=== PATIENT | female | born 1985 | race Caucasian/White ===

== ENCOUNTER 2022-05-27 17:58 | Emergency (ER) | payer OTHER, SELFPAY ==
[2022-05-27 18:30] VITALS: BP 137/92; PULSE 81; RESP 20; TEMP 36.8; O2SAT 100
--- NOTE | 2022-05-27 18:56 | ED.GENADULT ---
HPI - General Adult General Chief complaint: Unspecified Stated complaint: from out of town, can't get meds here Time Seen by Provider: 05/27/22 18:26 History of Present Illness HPI narrative: 37-year-old female here for medication refill. Patient states that she abruptly came to [place] from [place] as her dad was admitted to the hospital here. Unfortunately she forgot her medications in [place]. She was able to get most of them refilled but notes that her clonazepam was unable to be prescribed as her psychiatrist cannot prescribe across state lines. Her psychiatrist is Dr. Michel Thompson. Under an urgent care facility who was told to come to the ED because they do not prescribe controlled substances. Patient states that she is anxious but denies suicidal or homicidal ideation. Related Data Allergies Allergy/AdvReac Type Severity Reaction Status Date / Time sertraline Allergy Unknown Verified 05/27/22 18:29 Review of Systems Review of Systems: Gen: Denies fevers or chills Eyes: Denies eye pain or visual change ENT: Denies congestion Respiratory: Denies shortness of breath or cough CV: Denies chest pain or palpitations GI: Denies abdominal pain nausea, emesis or diarrhea : denies burning, urgency, frequency or hematuria Musculoskeletal: Denies back pain or muscle pain Neuro: Denies numbness, tingling, weakness or focal weakness Skin: Denies rash Psych: Reports anxiety Except as documented, all other systems reviewed and negative Exam Narrative: APPEARANCE: Well appearing, no pain in distress, well-nourished. Head: Normocephalic and atraumatic. EYES: PERRLA/EOMI, conjunctivae clear NOSE: No nasal drainage EARS: External ear normal in appearance THROAT: Oropharynx is clear. Mucous membranes are moist. NECK: Supple. No adenopathy, no masses. RESPIRATORY: Airway patent, respirations nonlabored. Clear to auscultation bilaterally, no rales, rhonchi, wheezing. CARDIOVASCULAR: Regular rate and rhythm without murmurs, rubs, or gallops. ABDOMINAL: Normoactive bowel sounds. Soft, nontender, nondistended. No rebound tenderness or guarding. MUSCULOSKELETAL: Extremities are warm and well-perfused. Moves all extremities well. No edema. NEURO: Normal speech. No focal neurologic deficits. SKIN: Skin is warm and dry. No rashes. PSYCHIATRIC: Anxious mood. Course Vital Signs Vital signs: Vital Signs Temperature 98.2 F 05/27/22 18:30 Pulse Rate 81 05/27/22 18:30 Respiratory Rate 20 05/27/22 18:30 Blood Pressure 137/92 H 05/27/22 18:30 Pulse Oximetry 100 05/27/22 18:30 Oxygen Delivery Room Air 05/27/22 18:30 Temperature 98.2 F 05/27/22 18:30 Pulse Rate 81 05/27/22 18:30 Respiratory Rate 20 05/27/22 18:30 Blood Pressure 137/92 H 05/27/22 18:30 Pulse Oximetry 100 05/27/22 18:30 Oxygen Delivery Room Air 05/27/22 18:30 Medical Decision Making MDM Narrative Medical decision making narrative: 37-year-old female here for evaluation of anxiety and need for clonazepam refill. Touch base with patient's psychiatrist who confirmed patient's medication and dosing, states he truly cannot prescribe this medication across state lines, does express concern for withdrawal as patient has been on this medication for several years. We will provide patient a few days of her medication. She is not suicidal or homicidal and is stable for discharge at this time. Vital Signs Vital Signs: Vital Signs Temperature 98.2 F 05/27/22 18:30 Pulse Rate 81 05/27/22 18:30 Respiratory Rate 20 05/27/22 18:30 Blood Pressure 137/92 H 05/27/22 18:30 Pulse Oximetry 100 05/27/22 18:30 Oxygen Delivery Room Air 05/27/22 18:30 Temperature 98.2 F 05/27/22 18:30 Pulse Rate 81 05/27/22 18:30 Respiratory Rate 20 05/27/22 18:30 Blood Pressure 137/92 H 05/27/22 18:30 Pulse Oximetry 100 05/27/22 18:30 Oxygen Delivery Room Air 05/27/22 18:30 Discharge Plan Discharge Clinical
[2022-05-27] MEDS: clonazePAM (*CRX) 0.5 MG TABLET 1 MG PO (19:22)
== END 2022-05-27 19:26 | disposition home or self-care (01) ==
PROVIDERS: Emergency Provider Emergency Medicine
DX: F41.9 Anxiety disorder, unspecified (principal); Z76.0 Encounter for issue of repeat prescription
CPT/HCPCS: 99281; 99283; A9270